=== PATIENT | female | born 1980 | race Hispanic/Latino ===

== ENCOUNTER 2016-11-23 11:35 | Emergency (ER) | payer SELFPAY ==
[2016-11-23] MEDS ORDERED: NACL 0.9% 1000 ML 1,000 ML IV ONE ×2 (11:51→15:49)
[2016-11-23 12:34] LABS: Basophils % (Auto) 0.2 % (0.0-1.8); Eosinophils % (Auto) 0.2 % (0.0-4.3); Hemoglobin 14.5 gm/dl (10.1-14.3); Mean Corpuscular HGB Conc 34 % (30-34); Mean Corpuscular Hemoglobin 30 pg (28-32); Mean Corpuscular Volume 90 fl (79-97); Platelet Count 260 K/mm3 (140-440); Red Blood Count 4.78 M/mm3 (3.65-5.03); Red Cell Distribution Width 13.3 % (13.2-15.2); White Blood Count 12.7 K/mm3 (4.5-11.0)
[2016-11-23 12:44] LABS: INR 1.02 (0.87-1.13)
[2016-11-23 12:53] LABS: Alanine Aminotransferase 14 units/L (7-56); Albumin 4.3 g/dL (3.9-5); Albumin/Globulin Ratio 1.3 %; Alkaline Phosphatase 60 units/L (35-129); Anion Gap 18 mmol/L; BUN/Creatinine Ratio 12; Blood Urea Nitrogen 11 mg/dL (7-17); Calcium 9.6 mg/dL (8.4-10.2); Carbon Dioxide 23 mmol/L (22-30); Chloride 102.4 mmol/L (98-107); Glucose 122 mg/dL (65-100); Lipase 24 units/L (13-60); Potassium 3.5 mmol/L (3.6-5.0); Sodium 140 mmol/L (137-145); Total Protein 7.7 g/dL (6.3-8.2)
[2016-11-23] MEDS ORDERED: ZOFRAN IV ONE (15:49)
[2016-11-23] MEDS ORDERED: MORPHINE IV ONE ×2 (15:49→18:14)
--- NOTE | 2016-11-23 15:54 | Emergency Department Report ---
ED Abdominal Pain HPI - General Chief Complaint: GI Bleed Stated Complaint: VOMITING,ABDOMINAL PAIN Time Seen by Provider: 11/23/16 15:35 Source: patient Mode of arrival: Ambulatory Limitations: No Limitations - History of Present Illness Initial Comments: Patient is a 36-year-old female with no significant past medical history came today with nausea vomiting diarrhea and epigastric pain going on for 3 days. Patient denied any fever. She stated that at the end of the vomiting she will have some blood. Patient is dry heaving. MD Complaint: abdominal pain -: Gradual Location: epigastric Radiation: none Migration to: no migration Quality: sharp Consistency: constant Improves With: vomiting Worsens With: eating Associated Symptoms: nausea, vomiting, diarrhea. denies: fever, chills - Related Data Previous Rx's Medication Instructions Recorded Last Taken Type Ciprofloxacin HCl [Cipro] 500 mg PO Q12H #14 tab 02/14/13 Unknown Rx Hydrocodone Bit/Acetaminophen 1 each PO Q6HR #15 tablet 02/14/13 Unknown Rx [Lortab 7.5-500 Tablet] Ondansetron [Zofran] 4 mg PO Q6HR PRN #15 tablet 02/14/13 Unknown Rx Promethazine [Phenergan] 25 mg MD Q6HR PRN #4 supp.rect 02/14/13 Unknown Rx Allergies Allergy/AdvReac Type Severity Reaction Status Date / Time Penicillins Allergy Swelling Verified 11/23/16 11:46 ED Review of Systems ROS: Stated complaint: VOMITING,ABDOMINAL PAIN Other details as noted in HPI Comment: All other systems reviewed and negative Constitutional: denies: chills, fever Respiratory: denies: cough, shortness of breath Cardiovascular: denies: chest pain, palpitations, dyspnea on exertion, edema, paroxysmal nocturnal dyspnea Gastrointestinal: abdominal pain. denies: nausea, vomiting, hematemesis, melena , hematochezia Neurological: denies: headache ED Past Medical Hx - Past Medical History Previous Medical History?: Yes Additional medical history: gastric ulcers - Surgical History Past Surgical History?: Yes Hx Cholecystectomy: Yes - Social History Smoking Status: Current Every Day Smoker Substance Use Type: None - Medications Home Medications: Home Medications Medication Instructions Recorded Confirmed Last Taken Type Ciprofloxacin HCl [Cipro] 500 mg PO Q12H #14 tab 02/14/13 Unknown Rx Hydrocodone Bit/Acetaminophen 1 each PO Q6HR #15 tablet 02/14/13 Unknown Rx [Lortab 7.5-500 Tablet] Ondansetron [Zofran] 4 mg PO Q6HR PRN #15 tablet 02/14/13 Unknown Rx Promethazine [Phenergan] 25 mg MD Q6HR PRN #4 supp.rect 02/14/13 Unknown Rx ED Physical Exam - General Limitations: No Limitations General appearance: alert, other (patient is actively vomiting) - Head Head exam: Present: normocephalic, normal inspection - Neck Neck exam: Present: normal inspection, full ROM. Absent: meningismus - Respiratory Respiratory exam: Present: normal lung sounds bilaterally. Absent: respiratory distress, wheezes, rales, rhonchi, chest wall tenderness, accessory muscle use, decreased breath sounds, prolonged expiratory - Cardiovascular Cardiovascular Exam: Present: regular rate, normal rhythm, normal heart sounds - GI/Abdominal GI/Abdominal exam: Present: soft, tenderness (epigastric), normal bowel sounds. Absent: distended, guarding, rebound, rigid, organomegaly, mass, bruit, pulsatile mass, hernia - Back Exam Back exam: Present: normal inspection. Absent: tenderness, CVA tenderness (R), CVA tenderness (L) - Neurological Exam Neurological exam: Present: alert, oriented X3, CN II-XII intact, normal gait - Skin Skin exam: Present: warm, dry, normal color ED Course Vital Signs 11/23/16 11/23/16 11/23/16 11:46 15:45 16:35 Temperature 98.8 F 98.4 F Pulse Rate 50 L 68 Respiratory 18 20 20 Rate Blood Pressure 132/67 Blood Pressure 128/82 [Right] O2 Sat by Pulse 100 100 Oximetry 11/23/16 11/23/16 18:11 18:17 Temperature Pulse Rate Respiratory 20 20 Rate Blood Pressure Blood Pressure [Right] O2 Sat by Pulse 100 Oximetry - Reevaluation(s) Reevaluation #1: 11/23/16 18:53 Patient stated that she is feeling much better no nausea no vomiting no diarrhea at this moment. ED Medical Decision Making - Lab Data Result diagrams: 11/23/16 12:15 11/23/16 12:15 - EKG Data -: EKG Interpreted by In EKG shows normal: sinus rhythm Rate: normal - EKG Data Interpretation: no acute changes - Radiology Data Radiology results: report reviewed CT abdomen and pelvis unremarkable for acute abnormalities. - Medical Decision Making Patient is feeling much better labs reviewed slightly elevated white blood count , CT abdomen and pelvis unremarkable. Patient informed about her CT results and the finding on the liver and the possibility of liver adenoma and the need to follow-up with her primary care physician for further management. Critical care attestation.: If time is entered above; I have spent that time in minutes in the direct care of this critically ill patient, excluding procedure time. ED Disposition Clinical Impression: Abdominal pain Disposition: DC- TO HOME OR SELFCARE Is pt being admited?: No Condition: Stable Instructions: Abdominal Pain (ED), Gastritis (ED), Diet for Ulcers and Gastritis (ED) Referrals: PRIMARY CARE, [Primary Care Provider] - 3-5 Days Forms: Accompanied Note
[2016-11-23] MEDS ORDERED: ZOSYN/NS 4.5GM/100ML 4.5 GM/100 ML VIAL IV ONE (15:55)
[2016-11-23] MEDS ORDERED: PROTONIX IV ONE (16:00)
--- NOTE | 2016-11-23 17:27 | Cat Scan Report ---
FINAL REPORT EXAM: CT ABDOMEN PELVIS W CON HISTORY: abdominal pain TECHNIQUE: Serial axial images through the abdomen and pelvis with coronal and sagittal reconstruction. Intravenous administration of 100 milliliters Omni 300 contrast PRIORS: None. FINDINGS: No focal consolidations are seen in the lung bases. No pleural effusion is seen. There is a low-density lesion in the dome of the liver with peripheral nodular enhancement with coalescence of nodules in the delayed images. There is a 2nd lesion in the left lobe of the liver that measures 2 centimeters in diameter. This has hyperdense enhancement and appears isodense to the adjacent parenchyma in the delayed images. There is prominence to the intrahepatic biliary tree. Gallbladder is surgically absent. Pancreas appears normal. Spleen appears normal. Adrenal glands appear normal. Left kidney appears normal. There are hypodense foci in the right kidney which are too small to definitely characterize. Aorta is normal in caliber. Bladder is decompressed. No gross abnormality is seen in the uterus or adnexa. Small amount of low-density free fluid is seen in the dependent portion of the pelvis. Appendix appears normal. No gross bowel abnormality is identified. No acute osseous abnormality is identified. IMPRESSION: 1. Small amount of low-density free fluid is seen in the dependent portion of the pelvis. This is a nonspecific finding. It may be physiologic. 2. There is not evidence of bowel obstruction. 3. There is prominence to the intrahepatic biliary tree. An obstructing lesion is not identified with certainty. Findings can be correlated with laboratory values. 4. Probable hemangioma in the dome of the liver. 5. Hyper enhancing lesion is seen in the left lobe of the liver. This may represent hepatic adenoma. Other etiology is not excluded. There are currently no studies available for comparison. A follow-up study is recommended 3-6 months to assure stability.
[2016-11-23] MEDS ORDERED: REGLAN ONE (18:09)
[2016-11-23] MEDS ORDERED: MORPHINE ONE (18:10)
[2016-11-23] MEDS ORDERED: REGLAN IV ONE (18:14)
[2016-11-23 19:30] VITALS: BP 120/80
== END 2016-11-23 19:31 | disposition home or self-care (01) ==
LOC: ED 11:35
DX: R10.13 Epigastric pain (principal); R11.2 Nausea with vomiting, unspecified; R19.7 Diarrhea, unspecified; F17.210 Nicotine dependence, cigarettes, uncomplicated; Z88.0 Allergy status to penicillin
CPT/HCPCS: 36415; 74177; 80053; 83690; 84703; 85025; 85610; 85730; 86850; 86900; 86901; 93005; 93010; 96365; 96375; 96376; 99284; C9113; J2270; J2405; J2543; J2765; J7030; Q9967